=== PATIENT | male | born 1945 | race Caucasian/White ===

== ENCOUNTER 2018-03-22 05:21 | Inpatient (IN) | payer MEDICARE, BC ==
[2018-03-22] MEDS: CEFAZOLIN 2 GM/50 ML (PMX) 50 ML IVPB (06:00)
[2018-03-22] MEDS: TRANEXAMIC ACID 1,000 MG in DEXTROSE 5% 100 ML IVPB (06:00)
[2018-03-22] MEDS ORDERED: BUPIVACAINE 0.5% (SDV) 30 ML, morphine SULFATE (PF) 8 MG, EPINEPHrine 0.3 MG, KETOROLAC... IRR (06:00)
[2018-03-22] MEDS: GABAPENTIN 300 MG CAP PO ×2 (06:12→21:13)
[2018-03-22] MEDS: DEXAMETHASONE 1 MG TAB PO (06:13)
[2018-03-22] MEDS ORDERED: THROMBIN 5000 UNIT VIAL (06:57)
[2018-03-22] MEDS ORDERED: CA CHLORIDE (GM) 10% 10 ML INJ (06:58)
[2018-03-22] MEDS: POLYMYXIN/BACITRACIN 1L IRRIG (06:58)
[2018-03-22] MEDS ORDERED: EPHEDrine SULFATE 50 MG/5 ML SYG IV (07:00)
[2018-03-22] MEDS ORDERED: DESFLURANE 15 MIN (07:00)
[2018-03-22] MEDS ORDERED: MEPERIDINE 25 MG INJ IV (07:00)
[2018-03-22] MEDS ORDERED: IPRATROPIUM (NEB) 0.5 MG/2.5 ML AMP HHN (07:00)
[2018-03-22] MEDS ORDERED: FENTAnyl 50 MCG/ML VIAL IV ×3 (07:00)
[2018-03-22] MEDS ORDERED: HYDROmorphONE 1 MG/5 ML IV SYRINGE IV ×2 (07:00)
[2018-03-22] MEDS ORDERED: ONDANSETRON 4 MG INJ IV ×2 (07:00→09:00)
[2018-03-22] MEDS ORDERED: MIDAZOLAM 1 MG/ML 2 ML INJ IV (07:00)
[2018-03-22] MEDS ORDERED: OXYCODONE/ACETAMINOPHEN (5/325) TAB PO (07:00)
[2018-03-22] MEDS ORDERED: TRIMETHOBENZAMIDE 100 MG/ML VIAL IM (07:00)
[2018-03-22] MEDS ORDERED: NEOSTIGMINE 3 MG/3 ML SYRINGE (07:03)
[2018-03-22] MEDS ORDERED: ROCURONIUM 50 MG INJ (07:03)
[2018-03-22] MEDS ORDERED: CEFAZOLIN 1 GM INJ (07:03)
[2018-03-22] MEDS ORDERED: GLYCOPYRROLATE 0.4 MG INJ (07:03)
[2018-03-22] MEDS ORDERED: PROPOFOL 20 ML (07:03)
[2018-03-22] MEDS ORDERED: ROPIVACAINE 0.5 % 30 ML VIAL (07:03)
[2018-03-22] MEDS ORDERED: FENTAnyl 50 MCG/ML VIAL (07:04)
[2018-03-22] MEDS ORDERED: MIDAZOLAM 1 MG/ML 2 ML INJ (07:04)
[2018-03-22] MEDS ORDERED: DEXAMETHASONE 4 MG/ML 1 ML INJ (07:05)
[2018-03-22] MEDS ORDERED: ONDANSETRON 4 MG INJ (07:05)
[2018-03-22] MEDS ORDERED: SUGAMMADEX SODIUM 200 MG/2 ML VIAL IV (08:43)
[2018-03-22] MEDS ORDERED: HYDROmorphONE 1 MG/ML SYG IV (09:00)
[2018-03-22] MEDS ORDERED: MAGNESIUM HYDROXIDE 30ML CUP PO (09:00)
[2018-03-22] MEDS: SENNA/DOCUSATE NA (8.6MG/50MG) TAB PO ×2 (09:00→21:13)
[2018-03-22] MEDS ORDERED: oxyCODONE 5 MG TAB PO ×2 (09:00)
[2018-03-22] MEDS ORDERED: DIPHENHYDRAMINE 50 MG INJ IV (09:00)
[2018-03-22] MEDS ORDERED: NACL 0.9% 3 ML SYG IV (09:00)
[2018-03-22] MEDS ORDERED: LOPERAMIDE 2 MG CAP PO (09:00)
[2018-03-22] MEDS: hydrALAzine 20 MG INJ IV ×2 (09:39→09:56)
[2018-03-22] MEDS: CEFAZOLIN 1 GM/50 ML (PMX) 50 ML IVPB ×2 (09:40→16:43)
[2018-03-22] MEDS: HYDROmorphONE 1 MG/5 ML IV SYRINGE IV (09:43)
[2018-03-22] MEDS: TRANEXAMIC ACID 1,000 MG in SOD CHLORIDE 0.9% 100 ML IVPB (10:07)
[2018-03-22] MEDS: DIPHENHYDRAMINE 50 MG INJ IV (10:18)
[2018-03-22] MEDS: DEXAMETHASONE 2 MG TAB PO ×3 (13:10→23:41)
[2018-03-22] MEDS: ZOLPIDEM 5 MG TAB PO (23:41)
[2018-03-23] MEDS: CEFAZOLIN 1 GM/50 ML (PMX) 50 ML IVPB (00:35)
[2018-03-23] MEDS: KETOROLAC 15 MG INJ IV (02:53)
[2018-03-23] MEDS: DEXAMETHASONE 2 MG TAB PO (06:38)
[2018-03-23] MEDS: LEVOTHYROXINE 50 MCG TAB PO (06:38)
[2018-03-23] MEDS: oxyCODONE 5 MG TAB PO ×3 (06:39→10:06)
[2018-03-23] MEDS: SENNA/DOCUSATE NA (8.6MG/50MG) TAB PO (08:33)
== END 2018-03-23 11:39 | disposition home or self-care (01) | DRG 483 ==
LOC: REC 05:21 → MS1 10:36
PROC: 0RRK00Z Replacement of Left Shoulder Joint with Reverse Ball and Socket Synthetic Substitute, Open Approach (ICD-10-PCS; principal; 2018-03-22 07:00)
PROC: 0LS40ZZ Reposition Left Upper Arm Tendon, Open Approach (ICD-10-PCS; 2018-03-22 07:00)
PROC: 0PB90ZZ Excision of Right Clavicle, Open Approach (ICD-10-PCS; 2018-03-22 07:00)
DX: M19.012 Primary osteoarthritis, left shoulder (principal); L40.9 Psoriasis, unspecified; M1A.9XX0 Chronic gout, unspecified, without tophus (tophi); E03.9 Hypothyroidism, unspecified
CPT/HCPCS: 73030; 86999; 88304; 88311; 97167